=== PATIENT | female | born 1950 ===

== ENCOUNTER 2016-10-15 14:29 | Emergency (ER) | payer MEDICARE, MEDICAID ==
[~2016-10-15 14:29] MED LIST: ALBU0.63 INHALATION; ALBU18HF INH; ASCO250T7 PO; ASPI325T32 PO; CHOL100045 PO; DIPH50C PO; DOCU250C2 PO; DOXY100C2 PO; ISOS60TA2 PO; LACT10SO27 PO; LEVO100T6 PO; LORA10CA PO; METO-272 PO; MIRT15TA PO; MONT10TA20 PO; MORP-32 PO; OMEP20CA11 PO; PRE20 PO; SIMV10TA4 PO; TRIA10.8 NS
[2016-10-15 14:33] VITALS: BP 126/66; PULSE 71; RESP 16; O2SAT 99
--- NOTE | 2016-10-15 15:11 | ED.REPORT ---
HPI-Abd Pain F 40 and Over Date of Service October 15, 2016 ED Provider: Deejay Morris MD The patient is a 65 year old female w/ a hx of HTN, back pain, a.fib, HLD, arthritis, GERD, and asthma who presents to the ED sent from due to right sided abdominal pain that radiates to the back for the past 3 weeks. C/o associated pain with cough. She had a respiratory illness 3 weeks ago at which time she was placed on antibiotics. Her PCP is Dr. Zhu. She denies dysuria or any previous issues with kidney stones. Pt fractured her back 3 weeks ago when she bent over to pick something off the ground. Pt fell out of bed 2 weeks ago and received a small right cisneros abrasion. Nursing Notes Stated Complaint: RIGHT FLANK PAIN, ABDOMINAL TENDERNESS/FROM U.C Chief Complaint: Female Abdominal Pain Nursing Notes Reviewed: Yes Allergies: Coded Allergies: Penicillins (Verified Allergy, Severe, RASH, 05/20/15) etanercept (Verified Allergy, Severe, 05/20/15) whoel body swelled up pineapple (Verified Allergy, Severe, lips swell up, 05/20/15) shellfish derived (Unverified Allergy, Severe, 05/20/15) hives, SOB, swelling tomato (Unverified Allergy, Severe, 05/20/15) SOB, hives, lips swell Scheduled Ascorbic Acid (Vitamin C) 250 Mg Tab.chew 250 MG PO DAILY Aspirin (Aspirin) 325 Mg Tablet 325 MG PO DAILY Cholecalciferol (Vitamin D3) (Vitamin D) 1,000 Unit Capsule 1,000 UNIT PO BID Diphenhydramine Hcl (Benadryl) 50 Mg Capsule 25-50 MG PO Q6H Doxycycline Hyclate (Doxycycline Hyclate) 100 Mg Capsule 100 MG PO BID Isosorbide MN ER (Isosorbide MN ER) 60 Mg Tab.er.24h 60 MG PO DAILY Levothyroxine (Levothyroxine) 100 Mcg Tablet 100 MCG PO DAILY Loratadine (Claritin) 10 Mg Capsule 10 MG PO DAILY Metoprolol Succinate ER (Metoprolol Succinate ER) 50 Mg Tab.er.24h 50 MG PO DAILY Mirtazapine (Remeron) 15 Mg Tablet 15 MG PO HS Montelukast (Singulair) 10 Mg Tablet 10 MG PO HS Morphine Sulfate ER (Morphine Sulfate ER) 15 Mg Tablet 15 MG PO TID Omeprazole (Omeprazole) 20 Mg Capsule.dr 20 MG PO DAILY Prednisone (PredniSONE) 20 Mg Tablet 60 MG PO DAILY Simvastatin (Simvastatin) 10 Mg Tablet 10 MG PO HS Triamcinolone Acetonide (Nasacort) 10.8 Ml Dalton 1 SPRAY NS BID Scheduled PRN Albuterol Neb Soln (Albuterol Neb Soln) 0.63 Mg/3 Ml Vial.neb 1 INH INHALATION Q4H PRN PRN For Shortness of Breath Albuterol Sulfate (Ventolin HFA Inhaler) 200 Puff/18 Gm Inhaler 2 PUFF INH Q4 PRN PRN For Wheezing Docusate Sodium (Docusate Sodium) 250 Mg Capsule 250 MG PO DAILY PRN PRN For Constipation Lactulose (Lactulose) 10 Gm/15 Ml Solution 1-4 TBS PO TID PRN PRN For Bowel Movement Oxycodone HCl/Acetaminophen 5-325 (Endocet 5-325) 1 Each Tablet 1-2 TABLET PO Q4H PRN PRN For Pain General Time Seen by MD: 15:10 Chief Complaint Abdominal pain Hx Obtained From: Patient Arrived By: Walk-in Sudden in Onset?: Yes Onset Occurred: More than a week ago... (3 weeks) Symptom Duration: Since onset Location: : Abdomen lower: RLQ Quality: Painful Radiation: : Back Severity: Current: Moderate Recent Healthcare: No recent doctor visit, No recent hospitalization Similar Sx Previous: No Past Medical History Past Medical History heatial hernia gout upper respiratory infection left malleolus fracture RA Reports: Asthma, COPD, Congestive heart failure, Hypertension Past Surgical History axillary lump removed Smoking History Current Every Day Smoker Social History Alcohol Use: Denies alcohol use Drug Use: Denies drug use Other Social History: Ambulatory Status Independent Review of Systems GI: Reports: Abdominal pain Female: Denies: Dysuria Musculoskeletal: Reports: Back pain Complete sys rev & neg: except as marked. Physical Exam Vital Signs Vital Signs (First) Date Time Temp Pulse Resp B/P Pulse Ox O2 Delivery O2 Flow Rate FiO2 10/15/16 14:33 36.8 71 16 126/66 99 Room Air Initial VS: Reviewed Head / Eyes: Atraumatic, Normocephalic ENT: Mucous membranes moist Neck: Supple Skin: Warm, Dry Neurologic: Alert, Oriented Psychiatric: Mood/affect normal, Behavior normal General/Constitutional: Awake, Alert, Cooperative Respiratory / Chest: Atraumatic, Breath sounds NL, No respiratory distress, No rales, No rhonchi, No wheezing Cardiovascular: Heart rate NL, Regular rhythm, Heart sounds NL, No gallop, No murmurs, No rubs Abdomen: BS normoactive Flank / Spine / Paraspinal: Positive: Lumbar spine tender... Upper Extremity / MS: Atraumatic, Full range of motion, No deformity Lower Extremity / Pelvis / MS: Full range of motion, Neurologic intact Trauma / Burn / Environmental: Positive: Abrasion full thickness circular shaped wound to the right cisneros Interpretation & Diagnostics Interpretation & Diagnostics: CT KUB IMPRESSION: 1. No evidence of urinary tract calcification nor obstruction. 2. An appendicolith is present, but the appendix is normal in size. 3. Bilateral right greater than left adnexal cysts; malignancy could produce this appearance. Gynecological consultation recommended. 4. Uterine fibroids. 5. New chronic severe T11 compression fracture. Dictated by: Kevin Kevin M.D. on 10/15/2016 at 18:08 Approved by: Kevin Kevin M.D. on 10/15/2016 at 18:11 Lab Results Interpretation Result Diagram: 10/15/16 1535 10/15/16 1535 Test 10/15/16 15:22 10/15/16 15:35 Urine Color Yellow (YELLOW) Urine Appearance Clear (CLEAR,HAZY) Urine pH 6.0 (5.0-8.0) Urine Specific [place] 1.020 (1.003-1.035) Urine Protein Negativemg/dL (NEG,TRACE) Urine Glucose (UA) Negativemg/dL (NEGATIVE) Urine Ketones Negativemg/dL (NEGATIVE) Urine Occult Blood Negative (NEGATIVE) Urine Nitrite Negative (NEGATIVE) Urine Bilirubin Negative (NEGATIVE) Urine Urobilinogen Normalmg/dL (NORMAL) Urine Leukocyte Esterase Negative (NEGATIVE) Urine RBC 0-2/hpf (0-2) Urine WBC 0-5/hpf (0-5) Urine Epithelial Cells None/hpf (NONE-MOD) Urine Crystals None seen (NONE SEEN) Urine Bacteria Few/hpf (NONE-FEW) Urine Hyaline Casts None/lpf (NONE) Urine Granular Casts None seen (NONE SEEN) Urine Waxy Casts None seen (NONE SEEN) Urine Red Blood Cell Casts None seen (NONE SEEN) Urine White Blood Cell Casts None seen (NONE SEEN) Urine Mucus None seen (None Seen) Urine Trichomonas None seen (NONE SEEN) Urine Yeast None (NONE SEEN) Urinalysis Comment None Urine Culture Reflexed Not indicated White Blood Count 13.2th/mm3 (3.8-10.1) Red Blood Count 3.64mil/mm3 (3.90-5.20) Hemoglobin 10.9g/dL (12.0-15.6) Hematocrit 34.6% (35.0-46.0) Mean Corpuscular Volume 95.1fL (81-100) Mean Corpuscular Hemoglobin 29.9pg (27.0-35.0) Mean Corpuscular Hemoglobin Concent 31.5% (32.0-37.0) Red Cell Distribution Width 17.9% (12.3-15.4) Platelet Count 357bil/L (150-400) Neutrophils (%) (Auto) 78.9% (40-74) Lymphocytes (%) (Auto) 16.8% (14-46) Monocytes (%) (Auto) 3.6% (4-12) Eosinophils (%) (Auto) 0.1% (0-5) Basophils (%) (Auto) 0.2% (0-3) Sodium Level 139mEq/L (134-144) Potassium Level 3.3mEq/L (3.5-5.2) Chloride Level 97mEq/L (97-108) Carbon Dioxide Level 28mmol/L (18-29) Blood Urea Nitrogen 17mg/dL (8-27) Creatinine 0.73mg/dL (0.57-1.00) Estimat Glomerular Filtration Rate 114mL/min (>59) Glucose Level 133mg/dL (60-99) Calcium Level 8.5mg/dL (8.5-10.1) Magnesium Level 2.4mg/dL (1.6-2.6) Total Bilirubin 0.3mg/dL (0.0-1.2) Aspartate Amino Transf (AST/SGOT) 38U/L (0-50) Alanine Aminotransferase (ALT/SGPT) 17U/L (0-32) Alkaline Phosphatase 91U/L (25-165) Total Protein 6.4g/dL (6.4-8.4) Albumin 3.2g/dL (3.4-5.0) Lipase 28U/L (13-60) Hold [place] Top Tube Received (Received) Re-Eval/Medical Decision Consultation : Referral / Consult Name: Kevin Kevin MD Call Returned at: 19:15 Note: Imaging discussed with radiology. Counseled Regarding: Diagnosis, Lab results, Need for follow-up, When/why to return to ED Discharge & Departure Primary Impression: Wedge compression fracture of T11 vertebra Encounter type: initial encounter Fracture type: closed Qualified Code: S22.080A - Wedge compression fracture of T11-T12 vertebra, initial encounter for closed fracture Additional Impression: Ovarian cyst Laterality: bilateral Qualified Code: N83.201 - Unspecified ovarian cyst, right side Disposition: Home Discharge Condition All VS Reviewed: Yes Condition: Stable Additional Instructions: Emergency department evaluation today including interview, examination, labs and CT scan of the abdomen and pelvis. A wedge fracture of the 11th thoracic vertebrae is identified, this appears him and present for some time but it is possible that some nerve compression is causing right sided abdominal pain. We do not find any suggestion of a urinary tract infection or kidney stone. No evidence of intra-abdominal inflammation is identified making appendicitis unlikely. Ovarian cysts were seen. They are present on both sides and given that you are postmenopausal this should be evaluated by a trim machine operator. Contact your primary care doctor to arrange for follow-up FOZIA. Return to emergency department for fevers, severe abdominal pain, uncontrolled vomiting. Prescription is provided for oxycodone 1-2 every 4 hours as needed for pain. Use these sparingly. Referrals: Adriano Zhu MD (PCP) Scribe Attestation Portion of this note were transcribed by Marva Pang. I, , personally performed the history, physical exam, and medical decision-making: I reviewed and confirmed the accuracy for the information in the transcribed note. Signed by: aubrey Butcher, 10/15/161999 copies to: Adriano Zhu MD, Donald L MD October 15, 2016 15:11 Marva Pang October 15, 2016 15:14
[2016-10-15] MEDS ORDERED: Ondansetron 2 mg/mL 2 mL Inj IVPUSH PRN (15:25)
[2016-10-15 15:43] LABS: APPEARANCE,URINE CLEAR (CLEAR,HAZY); COLOR,URINE YELLOW (YELLOW)
[2016-10-15 15:44] LABS: OCCULT BLOOD,URINE NEGATIVE (NEGATIVE); UROBILINOGEN,URINE NORMAL (NORMAL)
[2016-10-15] MEDS: HYDROmorphone 0.5 mg/0.5 mL iSecure Syringe IVPUSH PRN ×2 (15:46→16:33)
[2016-10-15 15:56] LABS: BASOPHILS % (AUTO) 0.2 % (0-3); EOSINOPHILS % (AUTO) 0.1 % (0-5); MONOCYTES % (AUTO) 3.6 % (4-12); Mean Corpuscular Hemoglobin 29.9 pg (27.0-35.0); Mean Corpuscular Volume 95.1 fL (81-100); NEUTROPHILS % (AUTO) 78.9 % (40-74); Platelet Count 357 bil/L (150-400)
[2016-10-15 16:07] LABS: Magnesium 2.4 mg/dL (1.6-2.6)
[2016-10-15] MEDS ORDERED: HYDROcodone-APAP 5-325 mg Tablet PO ONE (17:10)
[2016-10-15 17:20] VITALS: BP 130/66; PULSE 76; RESP 16; O2SAT 95
--- NOTE | 2016-10-15 18:13 | DRSVH ---
PROCEDURE: CT KUB ([id number]) INDICATIONS: r flank pain TECHNIQUE: Noncontrast 5 mm thick sections acquired from the diaphragms to the symphysis. 5 mm thick coronal an d sagittal reformats were then performed. For radiation dose reduction, the following was used: aut omated exposure control, adjustment of mA and/or kV according to patient size. COMPARISON: None. FINDINGS: Image quality: Excellent. Lung bases: Lung bases are clear. Heart size is normal. Urinary system: Both kidneys are normal in size. No kidney stones. No hydronephrosis or perinephri c fat stranding. Both ureters appear non-dilated throughout their expected courses. Bladder wall th ickness is normal; no calcified bladder stones. Other solid organs: Liver and spleen are normal in size. Gallbladder is within normal limits. Panc reas is normal in contours. No adrenal nodules. Peritoneum and bowel: No change in fat-containing hiatal hernia. Unenhanced bowel loops demonstrate n ormal wall thickness and caliber. No free fluid or air. An appendicolith is present, but the append ix is normal in caliber. Nodes and vessels: No retroperitoneal or mesenteric adenopathy by size criteria. Aorta and inferior vena cava are normal in caliber. Abdominal wall: No ventral hernias. Pelvis: No free pelvic fluid. No inguinal hernias or adenopathy. Multiple uterine fibroids are pre sent, as before. A 40 mm diameter right adnexal cyst is present. 25 mm diameter left ovarian cyst is present. Bones: No suspicious bony lesions. There is a new chronic appearing severe T11 compression fracture with mild retropulsion into the anterior epidural space. IMPRESSION: 1. No evidence of urinary tract calcification nor obstruction. 2. An appendicolith is present, but the appendix is normal in size. 3. Bilateral right greater than left adnexal cysts; malignancy could produce this appearance. Gynecol ogical consultation recommended. 4. Uterine fibroids. 5. New chronic severe T11 compression fracture. Dictated by: Kevin Kevin M.D. on 10/15/2016 at 18:08 Approved by: Kevin Kevin M.D. on 10/15/2016 at 18:11
[2016-10-15] MEDS ORDERED: OXYC-407 PO (19:29)
[2016-10-15 19:37] VITALS: BP 116/64; PULSE 83; RESP 16; O2SAT 95
== END 2016-10-15 19:38 | disposition home or self-care (01) ==
LOC: SED 14:29
DX: S22.080A Wedge compression fracture of T11-T12 vertebra, initial encounter for closed fracture (principal); X58.XXXA Exposure to other specified factors, initial encounter; Y93.89 Activity, other specified; Y92.9 Unspecified place or not applicable; Y99.8 Other external cause status; N83.201 Unspecified ovarian cyst, right side; R05 Cough; I11.9 Hypertensive heart disease without heart failure; E78.5 Hyperlipidemia, unspecified; K21.9 Gastro-esophageal reflux disease without esophagitis; J45.909 Unspecified asthma, uncomplicated; I50.9 Heart failure, unspecified; J44.9 Chronic obstructive pulmonary disease, unspecified; F17.200 Nicotine dependence, unspecified, uncomplicated; Z79.82 Long term (current) use of aspirin; Z91.018 Allergy to other foods; Z88.0 Allergy status to penicillin
CPT/HCPCS: 36415; 74176; 80053; 81000; 83690; 83735; 85025; 96374; 96375; 96376; 99285; J1170; J2405